=== PATIENT | male | born 1945 | race Caucasian/White ===

== ENCOUNTER 2016-07-18 05:05 | Day surgery (SDC) | payer MEDICARE, OTHER ==
[2016-07-18] MEDS ORDERED: Glycopyrrolate 0.2 MG/ML 2 ML SYRINGE IVPUSH ONE (05:57)
[2016-07-18] MEDS ORDERED: Dextrose 5%-Lactated Ringers 1,000 ML IV SCH (05:57)
[2016-07-18] MEDS ORDERED: Propofol 200 MG/20 ML SDV ONE (07:00)
[2016-07-18] MEDS ORDERED: Midazolam 1 MG/ML 2 ML SDV ONE (07:00)
[2016-07-18] MEDS ORDERED: fentaNYL 100 MCG/2 ML SDV ONE (07:00)
[2016-07-18] MEDS ORDERED: Pantoprazole 40 MG Vial IVPUSH ONE (07:32)
[2016-07-18 09:02] VITALS: BP 136/79
--- NOTE | 2016-07-26 14:26 | OR ---
DATE OF PROCEDURE: 07/18/2016 PREOPERATIVE DIAGNOSIS: Laryngopharyngeal dysphagia. POSTOPERATIVE DIAGNOSES: 1. Laryngopharyngeal dysphagia with no anatomic abnormalities noted within hypopharynx, larynx or upper esophageal sphincter. 2. Marked duodenitis. OPERATIVE PROCEDURE: Esophagogastroduodenoscopy with biopsies of antrum for CLOtest. ANESTHESIA: IV sedation. INDICATION FOR PROCEDURE: This is a 71-year-old presenting with laryngopharyngeal dysphagia. He has no history of reflux problem or distal dysphagia. He is not presently on any stomach medications. He does take aspirin 81 mg a day. Plan is to proceed with upper GI endoscopy with biopsies and/or dilation as indicated. Potential risks including bleeding and perforation were discussed and the patient wishes to proceed. DETAILS OF PROCEDURE: The patient was taken to the operating room and placed in a left lateral decubitus position. IV sedation was administered, after which the upper GI endoscope was passed orally through the length of the esophagus and into the stomach with retroflexion view of the fundus, thereafter through the pyloric channel into the duodenum to the junction of the third and fourth portions. Findings included normal hypopharynx, larynx, and upper esophageal sphincter. These areas showed no anatomic abnormalities or signs of inflammation. The esophageal body and EG junction were likewise unremarkable. No significant hiatal hernia present. Within the stomach, there was no real discernible areas of inflammation, however as one passed through the pyloric channel into the proximal duodenum, there is a quite marked duodenitis. No ulcerations were seen and this waned beyond the duodenal bulb. At this point, biopsies were obtained from the antrum and sent for CLOtest for H. pylori. Minimal bleeding from the biopsy sites was seen and the procedure then concluded. The patient will be given Protonix 40 mg IV in the recovery room and we will start him on Zantac 300 mg p.o. daily #30 with refills x1 year. If his CLOtest is positive, he will be contacted and set up on one of the H. pyloric antibiotic regimens. We will also schedule the patient for x-ray, swallow study and speech pathology consultation regarding the laryngopharyngeal dysphagia and follow with Dr. Paredes after that study has been completed. Papa Hall MD /[id number]
== END 2016-07-18 09:05 | disposition home or self-care (01) ==
LOC: JP.SDS 05:05
PROVIDERS: ATTEND Surgery
DX: R13.13 Dysphagia, pharyngeal phase (principal); K29.80 Duodenitis without bleeding
CPT/HCPCS: 43239; 87081; C9113; J2250; J2704; J3010; J7042

== ENCOUNTER 2018-03-04 18:59 | Emergency (ER) | payer MEDICARE, OTHER ==
--- NOTE | 2018-03-04 19:41 | EDM.PDOC ---
ED HPI GENERAL MEDICAL PROBLEM - General Chief Complaint: Lower Extremity Injury/Pain Stated Complaint: FELL RI LEG Time Seen by Provider: 03/04/18 19:20 Source of Information: Reports: Patient, Family History Limitations: Reports: No Limitations - History of Present Illness INITIAL COMMENTS - FREE TEXT/NARRATIVE: 72-year-old male slipped on the ice earlier this evening onto his right hip, sustaining an injury. He has significant pain in the right hip, unable to bear weight and has increase pain with any movement. No other injury. Denies shortness of breath or head injury. Onset: Sudden Duration: Hour(s): (Within the last few hours) Location: Reports: Lower Extremity, Right Quality: Reports: Sharp, Stabbing Severity: Moderate Worsens with: Reports: Other (Increased pain with any attempt at weightbearing) , Movement Associated Symptoms: Reports: No Other Symptoms right hip Pain Score (Numeric/FACES): 3 - Related Data Allergies Allergy/AdvReac Type Severity Reaction Status Date / Time No Known Allergies Allergy Verified 03/12/16 10:54 Home Meds: Home Meds Aspirin 81 mg PO DAILY 03/12/16 [History] Carvedilol [Coreg] 25 mg PO BID 03/12/16 [History] Gluc/Nazario-Msm#2/C/D3/Rudy/Born [Aaxgbhemeg-Tmmdfbbfxcw-WIA] 1 tab PO BID [History] Lisinopril 2.5 mg PO DAILY 03/12/16 [History] Multivitamin with Minerals [Multiple Vitamin] 1 tab PO DAILY 03/12/16 [History] [place]-3/DHA/Epa/Fish Oil [[place]-3 Fish Oil 1,000 MG Sfgl] 1,000 mg PO BID [History] Spironolactone [Aldactone] 12.5 mg PO DAILY 03/12/16 [History] atorvaSTATin [Lipitor] 40 mg PO BEDTIME 03/12/16 [History] raNITIdine HCl [Ranitidine HCl] 1 tab PO DAILY 03/04/18 [History] Past Medical History HEENT History: Reports: Cataract, Hard of Hearing, Impaired Vision, Sinusitis Other HEENT History: wears glasses; bilat hearing aides Cardiovascular History: Reports: CAD, High Cholesterol, Hypertension, [place], Stents , Other (See Below) Other Cardiovascular History: chf, cardiomegaly Respiratory History: Reports: Asthma, COPD, SOB Gastrointestinal History: Reports: GERD Genitourinary History: Reports: Renal Calculus Musculoskeletal History: Reports: Arthritis Neurological History: Reports: Other (See Below) Other Neuro History: syncopal episdode 02/2016 Psychiatric History: Reports: None Endocrine/Metabolic History: Reports: None Hematologic History: Reports: None Immunologic History: Reports: None Oncologic (Cancer) History: Reports: None Dermatologic History: Reports: None - Infectious Disease History Infectious Disease History: Reports: Chicken Pox - Past Surgical History HEENT Surgical History: Reports: Adenoidectomy, Cataract Surgery, Tonsillectomy Cardiovascular Surgical History: Reports: Coronary Artery Stent Respiratory Surgical History: Reports: None GI Surgical History: Reports: Colonoscopy Male Surgical History: Reports: None Neurological Surgical History: Reports: None Musculoskeletal Surgical History: Reports: Other (See Below) Other Musculoskeletal Surgeries/Procedures:: right knee surgery Dermatological Surgical History: Reports: None Social & Family History - Tobacco Use Smoking Status *Q: Former Smoker Used Tobacco, but Quit: Yes Month/Year Tobacco Last Used: 2002 Second Hand Smoke Exposure: No - Caffeine Use Caffeine Use: Reports: Coffee, Soda - Recreational Drug Use Recreational Drug Use: No Review of Systems - Review of Systems Review Of Systems: See Below Constitutional: Denies: Fever Respiratory: Denies: Shortness of Breath Cardiovascular: Denies: Chest Pain GI/Abdominal: Denies: Abdominal Pain Skin: Denies: Bruising Neurological: Denies: Confusion, Headache ED EXAM, GENERAL - Physical Exam Exam: See Below Exam Limited By: No Limitations General Appearance: Alert, No Apparent Distress Head: Atraumatic Neck: Supple Respiratory/Chest: No Respiratory Distress, Lungs Clear Cardiovascular: Regular Rate, Rhythm GI/Abdominal: Non-Tender Extremities: Other (Patient has significant pain to palpation of the right hip, with right leg shortening and external rotation. Distal pulse and sensation is intact to both extremities) Neurological: Alert, Oriented Course - Vital Signs Last Recorded V/S: Last Vital Signs Temp 97.7 F 03/04/18 19:25 Pulse 58 L 03/04/18 21:45 Resp 16 03/04/18 21:45 BP 165/84 H 03/04/18 21:45 Pulse Ox 99 03/04/18 21:45 - Orders/Labs/Meds Orders: Active Orders 24 hr Category Date Time Status Hip Min 2V or 3V w Pelvis Rt [CR] Stat Exams 03/04/18 19:25 Taken Meds: Medications Discontinued Medications Generic Name Dose Route Start Last Admin Trade Name Trevon PRN Reason Stop Dose Admin Hydromorphone HCl 0.5 mg 03/04/18 21:53 03/04/18 21:59 Dilaudid IVPUSH 03/04/18 21:54 0.5 mg ONETIME ONE Administration - Re-Assessments/Exams Free Text/Narrative Re-Assessment/Exam: 03/04/18 19:41 A pelvis and right hip x-ray was obtained. 03/04/18 20:07 X-ray confirmed an intertrochanteric fracture of the right hip. Orthopedics in [place] were consulted. 03/04/18 21:20 [place] had no beds available. Patient was accepted at [facility]. He 'll be transferred by EMS. Departure - Departure Time of Disposition: 22:36 Disposition: DC/Tfer to Other Condition: Fair Clinical Impression: Intertrochanteric fracture of right femur Qualifiers: Encounter type: initial encounter Fracture type: closed Fracture alignment: displaced Qualified Code(s): S72.141A - Displaced intertrochanteric fracture of right femur, initial encounter for closed fracture - Discharge Information Referrals: Ravi Paredes MD [Primary Care Provider] - Forms: ED Department Discharge Care Plan Goals: Patient will be transferred by EMS to [facility] for orthopedic referral, evaluation and care. - My Orders Last 24 Hours: My Active Orders 03/04/18 19:25 Hip Min 2V or 3V w Pelvis Rt [CR] Stat - Assessment/Plan Last 24 Hours: My Active Orders 03/04/18 19:25 Hip Min 2V or 3V w Pelvis Rt [CR] Stat
[2018-03-04 21:45] VITALS: BP 165/84
[2018-03-04] MEDS ORDERED: HYDROmorphone 0.5 MG/0.5 ML Syringe IVPUSH ONE (21:53)
--- NOTE | 2018-03-05 09:58 | CR ---
Impacted right intertrochanteric fracture. Pelvis is intact.
== END 2018-03-04 22:10 | disposition other institution (70) ==
LOC: JP.ED 18:59
DX: S72.141A Displaced intertrochanteric fracture of right femur, initial encounter for closed fracture (principal); I25.2 Old myocardial infarction; Z79.82 Long term (current) use of aspirin; Z79.899 Other long term (current) drug therapy; Z77.22 Contact with and (suspected) exposure to environmental tobacco smoke (acute) (chronic); W00.0XXA Fall on same level due to ice and snow, initial encounter
CPT/HCPCS: 73502; 96374; 99284; J1170

== ENCOUNTER 2018-03-12 13:00 | Emergency (ER) | payer MEDICARE, OTHER ==
[2018-03-12] MEDS ORDERED: Glucagon,Human Recombinant 1 MG Vial IM ONE (13:49)
--- NOTE | 2018-03-12 13:54 | EDM.PDOC ---
ED HPI GENERAL MEDICAL PROBLEM - General Chief Complaint: ENT Problem Stated Complaint: THROAT ISSUE Time Seen by Provider: 03/12/18 13:40 Source of Information: Reports: Patient, Old Records, RN History Limitations: Reports: No Limitations - History of Present Illness INITIAL COMMENTS - FREE TEXT/NARRATIVE: 72 yo male is temporarily at a local [facility] healing from a hip replacement. This morning he was having breakfast and taking his morning meds when he developed an esophageal obstruction. Has not been able to keep anything down since then. In the past he has had transient obstructions, but has not had to be seen. No difficulty with swallowing. Denies any pressure currently. Onset: Today Onset Date: 03/12/18 Onset Time: 08:45 Duration: Hour(s):, Constant Location: Reports: Chest (esophageal) Quality: Reports: Pressure (only if he tries to swallow more fluid/food since onset of the obstruction. ) Severity: Mild Improves with: Reports: Rest Worsens with: Reports: Eating (or drinking) Context: Reports: Other (see HPI) Associated Symptoms: Reports: No Other Symptoms Treatments [employer]ER: Reports: Other (see below) (none) Throat Pain Score (Numeric/FACES): 1 - Related Data Allergies Allergy/AdvReac Type Severity Reaction Status Date / Time No Known Allergies Allergy Verified 03/12/18 13:35 Home Meds: Home Meds Aspirin 81 mg PO DAILY 03/12/16 [History] Carvedilol [Coreg] 25 mg PO BID 03/12/16 [History] Gluc/Nazario-Msm#2/C/D3/Rudy/Born [Afkedbbqax-Bucxiywgxkc-PJT] 1 tab PO BID [History] Lisinopril 2.5 mg PO DAILY 03/12/16 [History] Multivitamin with Minerals [Multiple Vitamin] 1 tab PO DAILY 03/12/16 [History] [place]-3/DHA/Epa/Fish Oil [[place]-3 Fish Oil 1,000 MG Sfgl] 1,000 mg PO BID [History] Spironolactone [Aldactone] 12.5 mg PO DAILY 03/12/16 [History] atorvaSTATin [Lipitor] 40 mg PO BEDTIME 03/12/16 [History] raNITIdine HCl [Ranitidine HCl] 1 tab PO DAILY 03/04/18 [History] Past Medical History HEENT History: Reports: Cataract, Hard of Hearing, Impaired Vision, Sinusitis Other HEENT History: wears glasses; bilat hearing aides Cardiovascular History: Reports: CAD, High Cholesterol, Hypertension, [place], Stents , Other (See Below) Other Cardiovascular History: chf, cardiomegaly Respiratory History: Reports: Asthma, COPD, SOB Gastrointestinal History: Reports: GERD Genitourinary History: Reports: Renal Calculus Musculoskeletal History: Reports: Arthritis Neurological History: Reports: Other (See Below) Other Neuro History: syncopal episdode 02/2016 Psychiatric History: Reports: None Endocrine/Metabolic History: Reports: None Hematologic History: Reports: None Immunologic History: Reports: None Oncologic (Cancer) History: Reports: None Dermatologic History: Reports: None - Infectious Disease History Infectious Disease History: Reports: Chicken Pox - Past Surgical History HEENT Surgical History: Reports: Adenoidectomy, Cataract Surgery, Tonsillectomy Cardiovascular Surgical History: Reports: Coronary Artery Stent GI Surgical History: Reports: Colonoscopy Musculoskeletal Surgical History: Reports: Other (See Below) Other Musculoskeletal Surgeries/Procedures:: right knee surgery Social & Family History - Tobacco Use Smoking Status *Q: Never Smoker - Caffeine Use Caffeine Use: Reports: Coffee, Soda - Recreational Drug Use Recreational Drug Use: No ED ROS ENT - Review of Systems Review Of Systems: See Below Constitutional: Reports: No Symptoms HEENT: Reports: No Symptoms Respiratory: Reports: No Symptoms Cardiovascular: Reports: No Symptoms GI/Abdominal: Reports: Difficulty Swallowing : Reports: No Symptoms Musculoskeletal: Reports: No Symptoms Skin: Reports: No Symptoms Neurological: Reports: No Symptoms Psychiatric: Reports: No Symptoms ED EXAM, ENT - Physical Exam Exam: See Below Exam Limited By: No Limitations General Appearance: Alert, WD/WN, No Apparent Distress Eye Exam: Bilateral Eye: Normal Inspection Ears: Normal External Exam, Normal Canal, Hearing Grossly Normal, Normal TMs Nose: Normal Inspection, Normal Mucousa, No Blood Mouth/Throat: Normal Inspection, Normal Lips, Normal Oropharynx Head: Atraumatic, Normocephalic Neck: Normal Inspection, Supple, Non-Tender Respiratory/Chest: No Respiratory Distress, Lungs Clear, Normal Breath Sounds, Chest Non-Tender Cardiovascular: Regular Rate, Rhythm, No Edema GI/Abdominal: Normal Bowel Sounds, Soft, Non-Tender, No Distention (Male) Exam: Normal Inspection Extremities: Normal Inspection, Normal Range of Motion, Non-Tender, No Pedal Edema Neurological: Alert, Oriented, CN II-XII Intact, Normal Cognition, Other (No gag reflex noted, unable to initiate the swallowing of even a tsp of water. ) Psychiatric: Normal Affect, Normal Mood Skin: Warm, Dry, Intact, Normal Color, No Rash Course - Vital Signs Text/Narrative:: Not able to swallow water without choking. Was able with some hesitation to swallow a half tsp of pudding, but then said it felt like it won't go down. Dr. Hall called @ 1454h. Last Recorded V/S: Last Vital Signs Temp 35.3 C 03/12/18 13:34 Pulse 76 03/12/18 13:34 Resp 16 03/12/18 13:34 BP 153/58 H 03/12/18 13:34 Pulse Ox 97 03/12/18 13:34 - Orders/Labs/Meds Orders: Active Orders 24 hr Category Date Time Status Lactated Ringers [Ringers, Lactated] 1,000 ml Med 03/12/18 14:00 Active IV ASDIRECTED Medication Orders Lactated Ringer's (Ringers, Lactated) 1,000 mls @ 500 mls/hr IV ASDIRECTED DIONNE Last Admin: 03/12/18 14:25 Dose: 500 mls/hr Labs: Laboratory Tests 03/12/18 03/12/18 Range/Units 14:01 14:01 WBC 13.7 H (4.5-11.0) K/uL RBC 3.31 L (4.30-5.90) M/uL Hgb 9.6 L D (12.0-15.0) g/dL Hct 29.3 L (40.0-54.0) % MCV 89 (80-98) fL MCH 29 (27-31) pg MCHC 33 (32-36) % Plt Count 358 (150-400) K/uL Sodium 138 L (140-148) mmol/L Potassium 4.5 (3.6-5.2) mmol/L Chloride 103 (100-108) mmol/L Carbon Dioxide 28 (21-32) mmol/L Anion Gap 11.5 (5.0-14.0) mmol/L BUN 24 H (7-18) mg/dL Creatinine 1.1 (0.8-1.3) mg/dL Est Cr Clr Drug Dosing 63.70 mL/min Estimated GFR (MDRD) > 60 (>60) Glucose 130 H (74-106) mg/dL Calcium 9.1 (8.5-10.1) mg/dL Meds: Medications Generic Name Dose Route Start Last Admin Trade Name Freq PRN Reason Stop Dose Admin Lactated Ringer's 1,000 mls @ 500 mls/hr 03/12/18 14:00 03/12/18 14:25 Ringers, Lactated IV 500 mls/hr ASDIRECTED DIONNE Administration Discontinued Medications Generic Name Dose Route Start Last Admin Trade Name Freq PRN Reason Stop Dose Admin Glucagon 1 mg 03/12/18 13:49 03/12/18 14:37 Glucagen IM 03/12/18 13:50 Not Given ONETIME ONE Departure - Departure Time of Disposition: 15:00 Disposition: Refer to Observation Condition: Fair Clinical Impression: Esophageal obstruction, Swallowing impairment - Discharge Information *PRESCRIPTION DRUG MONITORING PROGRAM REVIEWED*: No *COPY OF PRESCRIPTION DRUG MONITORING REPORT IN PATIENT OSIRIS: No Referrals: Ravi Paredes MD [Primary Care Provider] - Forms: ED Department Discharge - My Orders Last 24 Hours: My Active Orders 03/12/18 14:00 Lactated Ringers [Ringers, Lactated] 1,000 ml IV ASDIRECTED - Assessment/Plan Last 24 Hours: My Active Orders 03/12/18 14:00 Lactated Ringers [Ringers, Lactated] 1,000 ml IV ASDIRECTED
[2018-03-12] MEDS ORDERED: Lactated Ringers 1,000 ML IV SCH (14:00)
[2018-03-12 16:14] VITALS: BP 151/75
== END 2018-03-12 17:16 | disposition home or self-care (01) ==
LOC: JP.ED 13:00
DX: K22.2 Esophageal obstruction (principal); I25.2 Old myocardial infarction; I10 Essential (primary) hypertension; J44.9 Chronic obstructive pulmonary disease, unspecified; Z79.82 Long term (current) use of aspirin; Z79.899 Other long term (current) drug therapy
CPT/HCPCS: 36415; 80048; 85027; 96360; 96361; 99283; J7120

== ENCOUNTER 2018-08-01 13:22 | Emergency (ER) | payer MEDICARE, OTHER ==
[2018-08-01] MEDS ORDERED: Lactated Ringers 1,000 ML IV ONE (13:44)
--- NOTE | 2018-08-01 13:48 | EDM.PDOC ---
ED HPI GENERAL MEDICAL PROBLEM - General Chief Complaint: Syncope Stated Complaint: MEDICAL [facility] Time Seen by Provider: 08/01/18 13:30 Source of Information: Reports: Patient, EMS, Old Records History Limitations: Reports: No Limitations - History of Present Illness INITIAL COMMENTS - FREE TEXT/NARRATIVE: 73 yo male presents via EMS feeling weak and dizzy today. No other associated sx 's. Has a pHx of a coronary stent. No hx of CHF or CRF. EMS noted bradycardia and hypotension en route. Onset: Today, Sudden Onset Date: 08/01/18 Duration: Minutes:, Improving (feels better now that he is lying down. ) Location: Reports: Generalized Quality: Reports: Other (no pain) Severity: Severe Improves with: Reports: Other (lying) Worsens with: Reports: Other (standing) Context: Reports: Other (see HPI) Associated Symptoms: Reports: Weakness. Denies: Chest Pain, Diaphoresis, Nausea /Vomiting, Shortness of Breath Treatments LDR NURSE: Reports: Other (see below) (none) Denies Pain Score (Numeric/FACES): 0 - Related Data Allergies Allergy/AdvReac Type Severity Reaction Status Date / Time No Known Allergies Allergy Verified 08/01/18 13:32 Home Meds: Home Meds Aspirin 81 mg PO DAILY 03/12/16 [History] Carvedilol [Coreg] 25 mg PO BID 03/12/16 [History] Gluc/Nazario-Msm#2/C/D3/Rudy/Born [Lyrppqlyna-Docllthecsv-RXU] 1 tab PO BID [History] Lisinopril 5 mg PO DAILY 03/12/16 [History] Multivitamin with Minerals [Multiple Vitamin] 1 tab PO DAILY 03/12/16 [History] [place]-3/DHA/Epa/Fish Oil [[place]-3 Fish Oil 1,000 MG Sfgl] 1,000 mg PO BID [History] Spironolactone [Aldactone] 25 mg PO DAILY 03/12/16 [History] atorvaSTATin [Lipitor] 40 mg PO BEDTIME 03/12/16 [History] raNITIdine HCl [Ranitidine HCl] 1 tab PO BEDTIME 03/04/18 [History] Acetaminophen 650 mg PO Q6H PRN 03/12/18 [History] Propylene Glycol [Systane Balance] 1 drop EYEBOTH QID 03/12/18 [History] Past Medical History HEENT History: Reports: Cataract, Hard of Hearing, Impaired Vision, Sinusitis Other HEENT History: wears glasses; bilat hearing aides Cardiovascular History: Reports: CAD, High Cholesterol, Hypertension, [place], Stents , Other (See Below) Other Cardiovascular History: chf, cardiomegaly Respiratory History: Reports: Asthma, COPD, SOB Gastrointestinal History: Reports: GERD Genitourinary History: Reports: Renal Calculus Musculoskeletal History: Reports: Arthritis Neurological History: Reports: Other (See Below) Other Neuro History: syncopal episdode 02/2016 Psychiatric History: Reports: None Endocrine/Metabolic History: Reports: None Hematologic History: Reports: None Immunologic History: Reports: None Oncologic (Cancer) History: Reports: None Dermatologic History: Reports: None - Infectious Disease History Infectious Disease History: Reports: Chicken Pox - Past Surgical History HEENT Surgical History: Reports: Adenoidectomy, Cataract Surgery, Tonsillectomy Cardiovascular Surgical History: Reports: Coronary Artery Stent GI Surgical History: Reports: Colonoscopy Musculoskeletal Surgical History: Reports: Other (See Below) Other Musculoskeletal Surgeries/Procedures:: right knee surgery Social & Family History - Caffeine Use Caffeine Use: Reports: Coffee, Soda ED ROS GENERAL - Review of Systems Review Of Systems: See Below Constitutional: Reports: No Symptoms HEENT: Reports: No Symptoms Respiratory: Denies: Shortness of Breath, Wheezing, Pleuritic Chest Pain, Cough , Sputum, Hemoptysis Cardiovascular: Reports: Lightheadedness. Denies: Chest Pain, Dyspnea on Exertion, Orthopnea, Palpitations, Syncope Endocrine: Reports: No Symptoms GI/Abdominal: Reports: No Symptoms : Reports: No Symptoms Musculoskeletal: Reports: No Symptoms Skin: Reports: No Symptoms Neurological: Reports: No Symptoms Psychiatric: Reports: No Symptoms ED EXAM, GENERAL - Physical Exam Exam: See Below Exam Limited By: No Limitations General Appearance: Alert, WD/WN, No Apparent Distress Eye Exam: Bilateral Eye: Normal Inspection Ears: Normal External Exam, Normal Canal, Hearing Grossly Normal Ear Exam: Bilateral Ear: Auricle Normal, Canal Normal Nose: Normal Inspection, No Blood Throat/Mouth: Normal Inspection, Normal Lips, Normal Oropharynx, Normal Voice, No Airway Compromise Head: Atraumatic, Normocephalic Neck: Normal Inspection Respiratory/Chest: No Respiratory Distress, Lungs Clear, Normal Breath Sounds, No Accessory Muscle Use Cardiovascular: No Edema, Bradycardia, Irregularly Irregular GI/Abdominal: Normal Bowel Sounds, Soft, Non-Tender, No Distention Extremities: Normal Inspection, Normal Range of Motion, Non-Tender, No Pedal Edema Neurological: Alert, Oriented, CN II-XII Intact, Normal Cognition, No Motor/ Sensory Deficits Psychiatric: Normal Affect, Normal Mood Skin Exam: Warm, Dry, Intact, Normal Color, No Rash EKG INTERPRETATION EKG Date: 08/01/18 Time: 14:30 Rhythm: A-Fib Rate (Beats/Min): 73 [place]: Normal P-Wave: Absent QRS: Normal ST-T: Normal QT: Normal Comparison: Change From Previous EKG (afib has replace sinus rhythm) Course - Vital Signs Text/Narrative:: After a liter of LR his BP is back to his baseline at 101/59, HR 83. Able to walk independently with a cane. Last Recorded V/S: Last Vital Signs Temp 36.1 C 08/01/18 13:29 Pulse 71 08/01/18 14:00 Resp 10 L 08/01/18 14:00 BP 89/56 L 08/01/18 14:00 Pulse Ox 96 08/01/18 14:00 - Orders/Labs/Meds Orders: Active Orders 24 hr Category Date Time Status Cardiac Monitoring [RC] .As Directed Care 08/01/18 13:48 Active EKG Documentation Completion [RC] ASDIRECTED Care 08/01/18 14:26 Active EKG 12 Lead [EK] Routine Ther 08/01/18 14:26 Ordered Labs: Laboratory Tests 08/01/18 08/01/18 Range/Units 13:54 13:54 WBC 10.0 (4.5-11.0) K/uL RBC 4.48 (4.30-5.90) M/uL Hgb 12.8 D (12.0-15.0) g/dL Hct 38.9 L (40.0-54.0) % MCV 87 (80-98) fL MCH 29 (27-31) pg MCHC 33 (32-36) % Plt Count 205 (150-400) K/uL Sodium 137 L (140-148) mmol/L Potassium 5.3 H (3.6-5.2) mmol/L Chloride 103 (100-108) mmol/L Carbon Dioxide 26 (21-32) mmol/L Anion Gap 13.3 (5.0-14.0) mmol/L BUN 17 (7-18) mg/dL Creatinine 1.8 H D (0.8-1.3) mg/dL Est Cr Clr Drug Dosing 37.65 mL/min Estimated GFR (MDRD) 37 L (>60) Glucose 118 H (74-106) mg/dL Calcium 9.3 (8.5-10.1) mg/dL Troponin I 0.023 (0.000-0.056) ng/mL Meds: Medications Discontinued Medications Generic Name Dose Route Start Last Admin Trade Name Freq PRN Reason Stop Dose Admin Lactated Ringer's 1,000 mls @ 1,000 mls/hr 08/01/18 13:44 08/01/18 14:12 Ringers, Lactated IV 08/01/18 14:43 1,000 mls/hr BOLUS ONE Administration Departure - Departure Time of Disposition: 15:19 Disposition: Home, Self-Care 01 Condition: Fair Clinical Impression: New onset a-fib Instructions: Atrial Fibrillation, [id number] Referrals: PCP,None [Primary Care Provider] - Forms: ED Department Discharge Additional Instructions: Continue your current medications, but cut your lisinopril dose in half. See Dr. Reggie DE DIOS to discuss anticoagulation. Return as needed. - My Orders Last 24 Hours: My Active Orders 08/01/18 13:48 Cardiac Monitoring [RC] .As Directed 08/01/18 14:26 EKG Documentation Completion [RC] ASDIRECTED EKG 12 Lead [EK] Routine - Assessment/Plan Last 24 Hours: My Active Orders 08/01/18 13:48 Cardiac Monitoring [RC] .As Directed 08/01/18 14:26 EKG Documentation Completion [RC] ASDIRECTED EKG 12 Lead [EK] Routine
[2018-08-01 15:20] VITALS: BP 101/59
== END 2018-08-01 15:45 | disposition home or self-care (01) ==
LOC: JP.ED 13:22
DX: I48.91 Unspecified atrial fibrillation (principal); E78.00 Pure hypercholesterolemia, unspecified; I25.10 Atherosclerotic heart disease of native coronary artery without angina pectoris; I10 Essential (primary) hypertension; K21.9 Gastro-esophageal reflux disease without esophagitis; I25.2 Old myocardial infarction; Z95.5 Presence of coronary angioplasty implant and graft; J45.909 Unspecified asthma, uncomplicated; Z79.82 Long term (current) use of aspirin; Z79.899 Other long term (current) drug therapy
CPT/HCPCS: 36415; 80048; 84484; 85027; 93005; 96360; 99284; J7120

== ENCOUNTER 2022-01-29 14:56 | Emergency (ER) | payer MEDICARE, OTHER ==
[2022-01-29 15:08] VITALS: BP 106/59; PULSE 54
== END 2022-01-29 17:20 | disposition home or self-care (01) ==
LOC: JP.ED 14:56
DX: R55 Syncope and collapse (principal); I48.91 Unspecified atrial fibrillation; I25.10 Atherosclerotic heart disease of native coronary artery without angina pectoris; E78.00 Pure hypercholesterolemia, unspecified; I10 Essential (primary) hypertension; I25.2 Old myocardial infarction; J44.9 Chronic obstructive pulmonary disease, unspecified; Z79.01 Long term (current) use of anticoagulants; Z79.82 Long term (current) use of aspirin; Z79.899 Other long term (current) drug therapy; Z87.891 Personal history of nicotine dependence
CPT/HCPCS: 36415; 80048; 84484; 85025; 99284

== ENCOUNTER 2022-02-01 16:00 | Emergency (ER) | payer MEDICARE, OTHER ==
[2022-02-01] MEDS ORDERED: Factor IX Complex Human 500 UNIT VIAL IVPUSH ONE ×2 (16:01→16:45)
[2022-02-01] MEDS ORDERED: Sodium Chloride 0.9% 10 ML Syringe FLUSH PRN (16:01)
[2022-02-01] MEDS ORDERED: Sodium Chloride 0.9% 1,000 ML IV ONE (16:04)
[2022-02-01] MEDS ORDERED: Pantoprazole 80 MG in Sodium Chloride 0.9% 100 ML IV ONE (16:05)
[2022-02-01] MEDS ORDERED: Pantoprazole 80 MG in Sodium Chloride 0.9% 100 ML IV SCH (16:15)
[2022-02-01] MEDS ORDERED: Ondansetron 4 MG/2 ML SDV IVPUSH ONE (16:45)
[2022-02-01 16:57] LABS: ESTIMATED GFR 32 mL/min (>60)
[2022-02-01] MEDS ORDERED: Ketamine 500 MG/5 ML MDV IV ONE (16:58)
[2022-02-01] MEDS ORDERED: Rocuronium 50 MG/5 ML Vial IV ONE (16:58)
[2022-02-01 18:00] VITALS: BP 138/89
[2022-02-01 18:04] VITALS: PULSE 82
== END 2022-02-01 18:10 ==
LOC: JP.ED 16:00
DX: R00.1 Bradycardia, unspecified (principal); R55 Syncope and collapse; K92.2 Gastrointestinal hemorrhage, unspecified; I48.91 Unspecified atrial fibrillation; I25.10 Atherosclerotic heart disease of native coronary artery without angina pectoris; E78.00 Pure hypercholesterolemia, unspecified; K21.9 Gastro-esophageal reflux disease without esophagitis; I25.2 Old myocardial infarction; I11.0 Hypertensive heart disease with heart failure; I50.9 Heart failure, unspecified; Z79.01 Long term (current) use of anticoagulants; Z79.82 Long term (current) use of aspirin; Z79.899 Other long term (current) drug therapy; Z20.822 Contact with and (suspected) exposure to COVID-19
CPT/HCPCS: 31500; 36415; 36430; 43752; 71045; 80053; 83605; 85025; 85379; 85610; 85730; 86850; 86900; 86901; 86920; 86922; 93005; 96365; 96366; 96375; 99285; C9113; J2405; J3490; J7030; J7168; P9016; P9017; U0002